=== PATIENT | male | born 2005 ===

== ENCOUNTER 2024-02-15 13:20 | Emergency (ER) | payer OTHER ==
[~2024-02-15] VITALS: Ht 172.7 cm; Wt 61.4 kg
[2024-02-15 13:52] VITALS: TEMP 98.6
[2024-02-15] MEDS: CEPHALEXIN MONOHYDRATE 500 MG CAPSULE PO ONE (13:59)
[2024-02-15] MEDS: SULFAMETHOX/TRIMETH DS 800-160 MG/TABLET PO ONE (14:00)
[2024-02-15] MEDS: BACITRACIN 0.9 GM PACKET OINTMENT TP ONE (14:00)
[2024-02-15] MEDS: LIDOCAINE/PRILOCAINE 2.5% 30 GM CREAM TP ONE (14:12)
[2024-02-15 14:53] VITALS: BP 124/72; PULSE 83; RESP 16
== END 2024-02-15 15:06 ==
LOC: EMS 13:24
DX: T19.4XXA Foreign body in penis, initial encounter (principal); W45.8XXA Other foreign body or object entering through skin, initial encounter; Y93.89 Activity, other specified; Y92.89 Other specified places as the place of occurrence of the external cause; Y99.8 Other external cause status
CPT/HCPCS: 99284; Z7502; Z7610